=== PATIENT | male | born 1985 | race Hispanic/Latino ===

== ENCOUNTER 2018-02-26 22:08 | Emergency (ER) | payer BC ==
[2018-02-26] MEDS ORDERED: ACETAMINOPHEN EXTRA STRENGTH 500 MG TABLET ONE (22:20)
[2018-02-26] MEDS ORDERED: IBUPROFEN 400 MG TABLET ONE (22:31)
[2018-02-26] MEDS ORDERED: DEXAMETHASONE SOD PHOSPHATE 10MG/ML 1ML VIAL ONE (22:31)
== END 2018-02-26 22:41 | disposition home or self-care (01) ==
LOC: EDH 22:08
DX: J02.0 Streptococcal pharyngitis (principal)
CPT/HCPCS: 99284; J1100